=== PATIENT | female | born 1960 ===

== ENCOUNTER → 2018-06-01 18:06 | Outpatient (REF) | payer OTHER, SELFPAY ==
[2018-06-01 19:23] LABS: Erythrocyte Sedimentation Rate 37 MM/HR (0-20)
== END ==
LOC: LAB 18:06
PROVIDERS: Visit Provider Emergency Medicine Emergency Medical Services
DX: M19.90 Unspecified osteoarthritis, unspecified site (principal)
CPT/HCPCS: 85651

== ENCOUNTER → 2018-06-09 19:00 | Outpatient (REF) | payer OTHER, SELFPAY ==
[2018-06-09 20:06] LABS: Erythrocyte Sedimentation Rate 33 MM/HR (0-20)
== END ==
LOC: LAB 19:00
PROVIDERS: Visit Provider Emergency Medicine Emergency Medical Services
DX: M19.90 Unspecified osteoarthritis, unspecified site (principal); R53.83 Other fatigue
CPT/HCPCS: 85651